=== PATIENT | male | born 1955 | race Caucasian/White ===

== ENCOUNTER 2018-07-25 00:57 | Outpatient (CLI) | payer MEDICAID, SELFPAY ==
[2018-07-25] MEDS: Omnipaque 350 MG/ML 100 ML BTL IV (11:15)
--- NOTE | 2018-07-25 11:24 | DI.CT_ITS ---
SYMPTOMS/DIAGNOSIS: RESTAGING, S/P CHEMO/RT FOR MEDIASTINAL MASS, PRESUMED NSCLC CT CHEST, ABDOMEN AND PELVIS: Comparison is made with chest CT dated . Images were performed from the clavicles through the ischial tuberosities after IV and oral contrast. There has been interval development of multiple bilateral pulmonary nodules. The largest is in the anterior right lung at the border between the upper and middle lobes which measures 11 mm in greatest dimension. A 12 mm nodule is also seen in the right lower lobe. A 6 mm nodule is seen in the right upper lobe. Other smaller nodules are also present. A 7 mm nodule is seen in the upper left lung. Other smaller left sided nodules are also seen. No infiltrates, pleural or pericardial effusions are seen. There has been interval decrease in size of the previously noted mediastinal mass, now measuring 15 x 3.8 x 17 cm. It is mostly low homogeneous attenuation. No new adenopathy is seen. There are multiple low density lesions in the liver which appear stable. The gallbladder , spleen, adrenals, pancreas and kidneys are unremarkable. A diverticulum is seen in the descending duodenum. There is no bowel dilatation or inflammatory change. A large quantity of stool is seen in the rectum. Diverticula are present in the sigmoid colon. No adenopathy or free fluid is seen in the abdomen or pelvis. The prosthesis is normal in size. The bladder is unremarkable. No lytic or blastic bony lesions are seen. IMPRESSION: Interval development of multiple bilateral pulmonary nodules. Decreased size of mediastinal mass. Stable liver lesions.
== END 2018-07-25 01:17 ==
PROVIDERS: PCP Family Medicine; Visit Provider Radiology Radiation Oncology
DX: C34.02 Malignant neoplasm of left main bronchus (principal); R91.8 Other nonspecific abnormal finding of lung field; Z92.21 Personal history of antineoplastic chemotherapy
CPT/HCPCS: 36415; 74177; 71260; 82565; J3490

== ENCOUNTER 2018-08-05 09:52 | Outpatient (CLI) | payer MEDICAID, SELFPAY ==
[2018-08-05 10:20] LABS: Absolute Basophil Count 0.03 k/cumm (0.0-0.2); Absolute Eosinophil Count 0.18 k/cumm (0.0-0.7); Absolute Lymphocyte Count 0.74 k/cumm (1.2-3.4); Absolute Monocyte Count 0.42 k/cumm (0.11-0.7); Absolute Neutrophil Count 4.11 k/cumm (1.2-6.7); Basophils % 0.5; Eosinophils % 3.3; HCT 40.2 % (40.0-50.0); HGB 13.5 g/dL (13.5-17.5); Lymphocytes % 13.5; Mean Corp. HGB Concentration 33.6 g/dL (32.0-36.0); Mean Corpuscular Hemoglobin 29.6 pg (27.0-33.0); Mean Corpuscular Volume 88.2 fL (80-95); Mean Platelet Volume 9.1 fL (8.0-11.0); Monocytes % 7.7; Platelet Count 204 x1000/uL (130-400); RBC 4.56 m/cumm (4.50-6.00); RBC Distribution Width 12.3 % (11.8-14.1); White Blood Cell Count 5.48 k/cumm (4.4-10.8)
[2018-08-05 10:42] LABS: ALT 15 U/L (12-78); AST 14 U/L (15-37); Albumin 3.3 g/dL (3.4-5.0); Alkaline Phosphatase 91 U/L (46-116); Anion Gap 7.2 mmol/L (3-11); BUN 10 mg/dL (7-18); Bilirubin, Total 0.6 mg/dL (0.2-1.0); CO2 27.8 mmol/L (21.0-32.0); CREATININE 0.76 mg/dL (0.70-1.30); Calcium 8.3 mg/dL (8.5-10.1); Chloride 105 mmol/L (98-107); Glucose 95 mg/dL (70-100); Potassium 4.1 mmol/L (3.5-5.1); Sodium 140 mmol/L (136-145); T4 8.7 ug/dL (4.5-12.5); TSH 2.81 uIU/mL (0.358-3.74); Total Protein 6.3 g/dL (6.4-8.2)
== END 2018-08-05 10:12 ==
PROVIDERS: PCP Family Medicine; Visit Provider Internal Medicine Medical Oncology
DX: C34.02 Malignant neoplasm of left main bronchus (principal); E03.2 Hypothyroidism due to medicaments and other exogenous substances
CPT/HCPCS: 36415; 80053; 84436; 84443; 85025

== ENCOUNTER 2018-09-01 07:56 | Outpatient (CLI) | payer MEDICAID, SELFPAY ==
[2018-09-01 08:33] LABS: Abs Immature Grans 0.01 k/cumm (0.0-0.09); Absolute Basophil Count 0.03 k/cumm (0.0-0.2); Absolute Eosinophil Count 0.23 k/cumm (0.0-0.7); Absolute Lymphocyte Count 0.61 k/cumm (1.2-3.4); Absolute Monocyte Count 0.34 k/cumm (0.11-0.7); Absolute Neutrophil Count 3.12 k/cumm (1.2-6.7); Basophils % 0.7; Eosinophils % 5.3; HCT 43.3 % (40.0-50.0); Immature Grans % 0.2; Lymphocytes % 14.1; Mean Corp. HGB Concentration 32.3 g/dL (32.0-36.0); Mean Corpuscular Hemoglobin 28.6 pg (27.0-33.0); Mean Corpuscular Volume 88.4 fL (80-95); Monocytes % 7.8; Neutrophils % 71.9; Platelet Count 212 x1000/uL (130-400); RBC Distribution Width 12.8 % (11.8-14.1); White Blood Cell Count 4.34 k/cumm (4.4-10.8)
[2018-09-01 09:05] LABS: ALT 16 U/L (12-78); AST 17 U/L (15-37); Albumin 3.1 g/dL (3.4-5.0); Alkaline Phosphatase 100 U/L (46-116); Anion Gap 6.8 mmol/L (3-11); BUN 11 mg/dL (7-18); Bilirubin, Total 0.8 mg/dL (0.2-1.0); CO2 29.2 mmol/L (21.0-32.0); CREATININE 0.86 mg/dL (0.70-1.30); Calcium 8.6 mg/dL (8.5-10.1); Chloride 106 mmol/L (98-107); Glucose 84 mg/dL (70-100); Potassium 4.1 mmol/L (3.5-5.1); Sodium 142 mmol/L (136-145); T4 8.5 ug/dL (4.5-12.5); TSH 2.59 uIU/mL (0.358-3.74); Total Protein 6.3 g/dL (6.4-8.2)
== END 2018-09-01 08:16 ==
PROVIDERS: PCP Family Medicine; Visit Provider Internal Medicine Medical Oncology
DX: C34.02 Malignant neoplasm of left main bronchus (principal); E03.2 Hypothyroidism due to medicaments and other exogenous substances
CPT/HCPCS: 36415; 80053; 84436; 84443; 85025

== ENCOUNTER 2018-09-26 02:27 | Outpatient (CLI) | payer MEDICAID, SELFPAY ==
[2018-09-26 16:46] LABS: Abs Immature Grans 0.01 k/cumm (0.0-0.09); Absolute Basophil Count 0.05 k/cumm (0.0-0.2); Absolute Eosinophil Count 0.13 k/cumm (0.0-0.7); Absolute Neutrophil Count 5.41 k/cumm (1.2-6.7); Basophils % 0.7; Eosinophils % 1.9; HCT 40.3 % (40.0-50.0); HGB 13.2 g/dL (13.5-17.5); Immature Grans % 0.1; Lymphocytes % 12.9; Mean Corp. HGB Concentration 32.8 g/dL (32.0-36.0); Mean Corpuscular Hemoglobin 28.4 pg (27.0-33.0); Mean Corpuscular Volume 86.7 fL (80-95); Mean Platelet Volume 9.2 fL (8.0-11.0); Monocytes % 7.1; Neutrophils % 77.3; Platelet Count 230 x1000/uL (130-400); RBC 4.65 m/cumm (4.50-6.00); RBC Distribution Width 12.8 % (11.8-14.1)
[2018-09-26 17:20] LABS: ALT 17 U/L (12-78); AST 14 U/L (15-37); Albumin 3.2 g/dL (3.4-5.0); Alkaline Phosphatase 93 U/L (46-116); Anion Gap 10.1 mmol/L (3-11); BUN 9 mg/dL (7-18); Bilirubin, Total 0.7 mg/dL (0.2-1.0); CO2 27.9 mmol/L (21.0-32.0); CREATININE 1.04 mg/dL (0.70-1.30); Calcium 8.5 mg/dL (8.5-10.1); Chloride 101 mmol/L (98-107); Glucose 94 mg/dL (70-100); Potassium 3.6 mmol/L (3.5-5.1); Sodium 139 mmol/L (136-145); TSH 2.84 uIU/mL (0.358-3.74); Total Protein 6.3 g/dL (6.4-8.2)
[2018-09-26 17:29] LABS: T4 8.3 ug/dL (4.5-12.5)
== END 2018-09-26 02:47 ==
PROVIDERS: PCP Family Medicine; Visit Provider Nurse Practitioner Adult Health
DX: C34.02 Malignant neoplasm of left main bronchus (principal); E03.2 Hypothyroidism due to medicaments and other exogenous substances
CPT/HCPCS: 36415; 80053; 84436; 84443; 85025

== ENCOUNTER 2018-09-29 11:03 | Outpatient (CLI) | payer MEDICAID, SELFPAY | END 2018-09-29 11:23 | PROVIDERS: PCP Family Medicine; Visit Provider Nurse Practitioner Adult Health | DX: R00.8 Other abnormalities of heart beat (principal); C34.90 Malignant neoplasm of unspecified part of unspecified bronchus or lung; C34.02 Malignant neoplasm of left main bronchus | CPT/HCPCS: 93005; 93010 ==

== ENCOUNTER 2018-10-30 08:37 | Outpatient (CLI) | payer MEDICAID, SELFPAY ==
[2018-10-30 09:14] LABS: Abs Immature Grans 0.01 k/cumm (0.0-0.09); Absolute Basophil Count 0.03 k/cumm (0.0-0.2); Absolute Eosinophil Count 0.18 k/cumm (0.0-0.7); Absolute Lymphocyte Count 0.78 k/cumm (1.2-3.4); Absolute Monocyte Count 0.36 k/cumm (0.11-0.7); Absolute Neutrophil Count 3.81 k/cumm (1.2-6.7); Basophils % 0.6; Eosinophils % 3.5; HCT 41.6 % (40.0-50.0); HGB 13.6 g/dL (13.5-17.5); Immature Grans % 0.2; Lymphocytes % 15.1; Mean Corp. HGB Concentration 32.7 g/dL (32.0-36.0); Mean Corpuscular Hemoglobin 28.9 pg (27.0-33.0); Mean Corpuscular Volume 88.3 fL (80-95); Mean Platelet Volume 8.9 fL (8.0-11.0); Neutrophils % 73.6; Platelet Count 207 x1000/uL (130-400); RBC 4.71 m/cumm (4.50-6.00); RBC Distribution Width 12.7 % (11.8-14.1); White Blood Cell Count 5.17 k/cumm (4.4-10.8)
[2018-10-30 09:37] LABS: ALT 16 U/L (12-78); AST 11 U/L (15-37); Albumin 3.3 g/dL (3.4-5.0); Alkaline Phosphatase 98 U/L (46-116); Anion Gap 7.2 mmol/L (3-11); BUN 11 mg/dL (7-18); Bilirubin, Total 0.7 mg/dL (0.2-1.0); CO2 30.8 mmol/L (21.0-32.0); CREATININE 0.73 mg/dL (0.70-1.30); Calcium 8.8 mg/dL (8.5-10.1); Chloride 104 mmol/L (98-107); FREE T4 0.99 ng/dL (0.76-1.46); Glucose 65 mg/dL (70-100); Potassium 4.2 mmol/L (3.5-5.1); Sodium 142 mmol/L (136-145); Total Protein 6.5 g/dL (6.4-8.2)
[2018-10-30 10:01] LABS: TSH 2.03 uIU/mL (0.358-3.74)
== END 2018-10-30 08:57 ==
PROVIDERS: PCP Family Medicine; Visit Provider Nurse Practitioner Adult Health
DX: C34.90 Malignant neoplasm of unspecified part of unspecified bronchus or lung (principal); C34.02 Malignant neoplasm of left main bronchus
CPT/HCPCS: 36415; 80053; 84439; 84443; 85025

== ENCOUNTER 2018-11-24 00:17 | Outpatient (CLI) | payer MEDICAID, SELFPAY ==
[2018-11-24] MEDS: Omnipaque 350 MG/ML 50 ML BTL PO (10:03)
[2018-11-24] MEDS: Breeza Beverage 473 ML BTL PO ×2 (10:05→11:16)
[2018-11-24 10:22] LABS: CREATININE 0.92 mg/dL (0.70-1.30)
--- NOTE | 2018-11-24 10:54 | DI.CT_ITS ---
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 Comparison examination is 07/25/18. ABDOMEN AND PELVIS: There are multiple hypodense lesions seen within the liver. They are all stable compared to the prior examination. No enhancing hepatic masses are seen. The portal and superior mesenteric veins are patent. The gallbladder is negative. No biliary ductal dilatation is seen. The pancreas and peripancreatic soft tissues are unremarkable as are the spleen and adrenal glands. The kidneys show normal and symmetric enhancement. No evidence of a solid renal mass or obstruction is identified. The urinary bladder is intact. The reproductive organs are unremarkable. There is a large amount of stool seen in the rectum. No evidence of bowel obstruction or inflammation is seen. There is a normal appendix in the right lower quadrant of the abdomen. The abdominal aorta is of normal caliber. No aneurysmal dilatation is seen. There is mild atherosclerosis present. No significant abdominal or pelvic adenopathy, ascites or pneumoperitoneum is present. The bones are intact. No aggressive osseous lesions are seen. IMPRESSION: Stable hypodense lesions seen in the liver. Otherwise negative abdomen and pelvic CT scan. CHEST: The thoracic aorta is of normal caliber. No aneurysmal dilatation is seen. Heart size is at the upper limits of normal in size. No significant pericardial effusion is seen. The mass in the anterior mediastinum appears to have shown interval increase in size measuring 4.3 cm. by 3.0 cm. There does appear to be some involvement of the left subclavian and left common carotid arteries. No other significant mediastinal adenopathy or mass is seen. No pleural effusion or pneumothorax is identified. There are multiple pulmonary nodules including new nodules since 07/25/18. The largest nodule is in the left upper lobe and measures 1.2 by 1.2 cm. Mild centrilobular emphysematous changes are seen in the lungs. Paraseptal emphysematous changes are present in the lungs. No focal infiltrates are seen. The tracheobronchial tree is unremarkable. Degenerative changes are seen in the spine. No aggressive osseous lesions are identified. IMPRESSION: Worsening metastatic disease in the chest with an interval increase in size of the mediastinal mass since 07/25/18. There have also developed new pulmonary nodules, the largest of which lies in the left upper lobe and measures 1.2 cm. in diameter.
[2018-11-24] MEDS: Omnipaque 350 MG/ML 100 ML BTL IV (11:21)
== END 2018-11-24 00:37 ==
PROVIDERS: PCP Family Medicine; Visit Provider Nurse Practitioner Adult Health
DX: C34.02 Malignant neoplasm of left main bronchus (principal); C34.90 Malignant neoplasm of unspecified part of unspecified bronchus or lung; C78.1 Secondary malignant neoplasm of mediastinum; R91.8 Other nonspecific abnormal finding of lung field; K76.9 Liver disease, unspecified; Z92.21 Personal history of antineoplastic chemotherapy
CPT/HCPCS: 36415; 74177; 71260; 82565; J3490; Q9967

== ENCOUNTER 2018-11-27 11:11 | Outpatient (CLI) | payer MEDICAID, SELFPAY ==
[2018-11-27 11:41] LABS: Abs Immature Grans 0.01 k/cumm (0.0-0.09); Absolute Basophil Count 0.03 k/cumm (0.0-0.2); Absolute Eosinophil Count 0.18 k/cumm (0.0-0.7); Absolute Lymphocyte Count 0.96 k/cumm (1.2-3.4); Absolute Monocyte Count 0.44 k/cumm (0.11-0.7); Absolute Neutrophil Count 6.08 k/cumm (1.2-6.7); Basophils % 0.4; Eosinophils % 2.3; HCT 41.4 % (40.0-50.0); HGB 13.6 g/dL (13.5-17.5); Immature Grans % 0.1; Lymphocytes % 12.5; Mean Corp. HGB Concentration 32.9 g/dL (32.0-36.0); Mean Corpuscular Hemoglobin 28.6 pg (27.0-33.0); Mean Corpuscular Volume 87.2 fL (80-95); Monocytes % 5.7; Platelet Count 216 x1000/uL (130-400); RBC 4.75 m/cumm (4.50-6.00); RBC Distribution Width 12.5 % (11.8-14.1)
[2018-11-27 12:07] LABS: ALT 13 U/L (12-78); AST 12 U/L (15-37); Albumin 3.4 g/dL (3.4-5.0); Alkaline Phosphatase 111 U/L (46-116); Anion Gap 8.4 mmol/L (3-11); BUN 13 mg/dL (7-18); Bilirubin, Total 0.8 mg/dL (0.2-1.0); CO2 30.6 mmol/L (21.0-32.0); CREATININE 0.86 mg/dL (0.70-1.30); Calcium 9.2 mg/dL (8.5-10.1); Chloride 103 mmol/L (98-107); FREE T4 1.12 ng/dL (0.76-1.46); Glucose 72 mg/dL (70-100); Potassium 3.8 mmol/L (3.5-5.1); Sodium 142 mmol/L (136-145); TSH 3.87 uIU/mL (0.358-3.74); Total Protein 6.6 g/dL (6.4-8.2)
== END 2018-11-27 11:31 ==
PROVIDERS: PCP Family Medicine; Visit Provider Nurse Practitioner Adult Health
DX: C34.90 Malignant neoplasm of unspecified part of unspecified bronchus or lung (principal); C34.02 Malignant neoplasm of left main bronchus
CPT/HCPCS: 36415; 80053; 84439; 84443; 85025

== ENCOUNTER 2018-12-18 01:31 | Outpatient (RCR) | payer MEDICAID, SELFPAY ==
[2018-12-11] MEDS: Normal Saline Flush 10 ML SYR IVP (10:49)
[2018-12-11 11:00] LABS: Abs Immature Grans 0.01 k/cumm (0.0-0.09); Absolute Basophil Count 0.02 k/cumm (0.0-0.2); Absolute Lymphocyte Count 0.73 k/cumm (1.2-3.4); Absolute Monocyte Count 0.24 k/cumm (0.11-0.7); Absolute Neutrophil Count 2.74 k/cumm (1.2-6.7); Basophils % 0.5; Eosinophils % 2.6; HCT 38.9 % (40.0-50.0); HGB 12.8 g/dL (13.5-17.5); Immature Grans % 0.3; Mean Corp. HGB Concentration 32.9 g/dL (32.0-36.0); Mean Corpuscular Hemoglobin 28.8 pg (27.0-33.0); Mean Corpuscular Volume 87.6 fL (80-95); Mean Platelet Volume 9.2 fL (8.0-11.0); Monocytes % 6.3; Neutrophils % 71.3; Platelet Count 137 x1000/uL (130-400); RBC 4.44 m/cumm (4.50-6.00); White Blood Cell Count 3.84 k/cumm (4.4-10.8)
[2018-12-11 11:22] LABS: ALT 21 U/L (12-78); AST 18 U/L (15-37); Alkaline Phosphatase 108 U/L (46-116); Anion Gap 6.8 mmol/L (3-11); BUN 17 mg/dL (7-18); Bilirubin, Total 0.5 mg/dL (0.2-1.0); CO2 30.2 mmol/L (21.0-32.0); CREATININE 0.73 mg/dL (0.70-1.30); Calcium 8.6 mg/dL (8.5-10.1); Chloride 102 mmol/L (98-107); Glucose 98 mg/dL (70-100); Potassium 3.9 mmol/L (3.5-5.1); Sodium 139 mmol/L (136-145); T4 9.4 ug/dL (4.5-12.5); Total Protein 6.4 g/dL (6.4-8.2)
== END 2018-12-18 23:59 | disposition home or self-care (01) ==
LOC: INF 01:31
PROVIDERS: PCP Family Medicine; Visit Provider Internal Medicine Hematology & Oncology
DX: C34.90 Malignant neoplasm of unspecified part of unspecified bronchus or lung (principal); E03.2 Hypothyroidism due to medicaments and other exogenous substances; Z45.2 Encounter for adjustment and management of vascular access device
CPT/HCPCS: 36591; 80053; 84436; 84443; 85025

== ENCOUNTER 2019-01-15 01:08 | Outpatient (RCR) | payer MEDICAID, SELFPAY ==
[2018-12-25] MEDS: Normal Saline Flush 10 ML SYR IVP (10:07)
[2018-12-25 10:17] LABS: Absolute Basophil Count 0.02 k/cumm (0.0-0.2); Absolute Eosinophil Count 0.04 k/cumm (0.0-0.7); Absolute Lymphocyte Count 0.64 k/cumm (1.2-3.4); Absolute Monocyte Count 0.35 k/cumm (0.11-0.7); Absolute Neutrophil Count 1.37 k/cumm (1.2-6.7); Basophils % 0.8; Eosinophils % 1.7; HCT 34.9 % (40.0-50.0); HGB 11.4 g/dL (13.5-17.5); Lymphocytes % 26.4; Mean Corp. HGB Concentration 32.7 g/dL (32.0-36.0); Mean Corpuscular Hemoglobin 28.6 pg (27.0-33.0); Mean Corpuscular Volume 87.5 fL (80-95); Monocytes % 14.5; Neutrophils % 56.6; Platelet Count 170 x1000/uL (130-400); RBC 3.99 m/cumm (4.50-6.00); RBC Distribution Width 12.4 % (11.8-14.1); White Blood Cell Count 2.42 k/cumm (4.4-10.8)
[2018-12-25 11:33] LABS: ALT 25 U/L (12-78); AST 16 U/L (15-37); Alkaline Phosphatase 103 U/L (46-116); Anion Gap 7.5 mmol/L (3-11); BUN 9 mg/dL (7-18); Bilirubin, Total 0.3 mg/dL (0.2-1.0); CO2 29.5 mmol/L (21.0-32.0); CREATININE 0.75 mg/dL (0.70-1.30); Calcium 8.7 mg/dL (8.5-10.1); Chloride 104 mmol/L (98-107); Glucose 93 mg/dL (70-100); Sodium 141 mmol/L (136-145); T4 9.8 ug/dL (4.5-12.5); TSH 2.75 uIU/mL (0.358-3.74); Total Protein 6.5 g/dL (6.4-8.2)
[2019-01-01 09:00] LABS: Abs Immature Grans 0.02 k/cumm (0.0-0.09); Absolute Basophil Count 0.02 k/cumm (0.0-0.2); Absolute Eosinophil Count 0.03 k/cumm (0.0-0.7); Absolute Lymphocyte Count 0.52 k/cumm (1.2-3.4); Absolute Monocyte Count 0.21 k/cumm (0.11-0.7); Absolute Neutrophil Count 0.67 k/cumm (1.2-6.7); Basophils % 1.4; HGB 11.2 g/dL (13.5-17.5); Immature Grans % 1.4; Lymphocytes % 35.4; Mean Corp. HGB Concentration 32.9 g/dL (32.0-36.0); Mean Corpuscular Hemoglobin 28.6 pg (27.0-33.0); Mean Platelet Volume 8.5 fL (8.0-11.0); Monocytes % 14.3; Neutrophils % 45.5; Platelet Count 206 x1000/uL (130-400); RBC 3.91 m/cumm (4.50-6.00); RBC Distribution Width 12.6 % (11.8-14.1)
[2019-01-01] MEDS: Normal Saline Flush 10 ML SYR IVP (09:14)
[2019-01-01 09:15] LABS: White Blood Cell Count 1.47 k/cumm (4.4-10.8)
[2019-01-01 09:18] LABS: Diff Comment Diff Reviewed; RBC Morphology Normal
[2019-01-01 09:33] LABS: ALT 38 U/L (12-78); AST 20 U/L (15-37); Albumin 3.1 g/dL (3.4-5.0); Alkaline Phosphatase 109 U/L (46-116); Anion Gap 7.1 mmol/L (3-11); BUN 19 mg/dL (7-18); Bilirubin, Total 0.5 mg/dL (0.2-1.0); CO2 28.9 mmol/L (21.0-32.0); CREATININE 0.79 mg/dL (0.70-1.30); Calcium 8.7 mg/dL (8.5-10.1); Chloride 104 mmol/L (98-107); Glucose 102 mg/dL (70-100); Potassium 3.9 mmol/L (3.5-5.1); Sodium 140 mmol/L (136-145); TSH 2.92 uIU/mL (0.358-3.74); Total Protein 6.6 g/dL (6.4-8.2)
[2019-01-01 09:50] LABS: T4 9.3 ug/dL (4.5-12.5)
[2019-01-15] MEDS: Normal Saline Flush 10 ML SYR IVP (10:48)
[2019-01-15 10:55] LABS: Abs Immature Grans 0.04 k/cumm (0.0-0.09); Absolute Basophil Count 0.03 k/cumm (0.0-0.2); Absolute Eosinophil Count 0.05 k/cumm (0.0-0.7); Absolute Lymphocyte Count 0.79 k/cumm (1.2-3.4); Absolute Monocyte Count 1.04 k/cumm (0.11-0.7); Absolute Neutrophil Count 8.83 k/cumm (1.2-6.7); Basophils % 0.3; Eosinophils % 0.5; HCT 31.3 % (40.0-50.0); HGB 10.2 g/dL (13.5-17.5); Immature Grans % 0.4; Lymphocytes % 7.3; Mean Corp. HGB Concentration 32.6 g/dL (32.0-36.0); Mean Corpuscular Hemoglobin 28.8 pg (27.0-33.0); Mean Corpuscular Volume 88.4 fL (80-95); Mean Platelet Volume 9.6 fL (8.0-11.0); Monocytes % 9.6; Neutrophils % 81.9; Platelet Count 161 x1000/uL (130-400); RBC 3.54 m/cumm (4.50-6.00); RBC Distribution Width 14.4 % (11.8-14.1); White Blood Cell Count 10.78 k/cumm (4.4-10.8)
[2019-01-15 11:20] LABS: ALT 15 U/L (12-78); AST 11 U/L (15-37); Albumin 2.8 g/dL (3.4-5.0); Alkaline Phosphatase 133 U/L (46-116); Anion Gap 4.4 mmol/L (3-11); BUN 8 mg/dL (7-18); Bilirubin, Total 0.3 mg/dL (0.2-1.0); CO2 30.6 mmol/L (21.0-32.0); CREATININE 0.61 mg/dL (0.70-1.30); Calcium 8.9 mg/dL (8.5-10.1); Chloride 102 mmol/L (98-107); Glucose 100 mg/dL (70-100); Potassium 3.8 mmol/L (3.5-5.1); Sodium 137 mmol/L (136-145); T4 8.7 ug/dL (4.5-12.5); TSH 1.99 uIU/mL (0.358-3.74); Total Protein 6.7 g/dL (6.4-8.2)
== END 2019-01-15 23:59 | disposition home or self-care (01) ==
LOC: INF 01:08
PROVIDERS: PCP Family Medicine; Visit Provider Internal Medicine Hematology & Oncology
DX: C34.90 Malignant neoplasm of unspecified part of unspecified bronchus or lung (principal); E03.2 Hypothyroidism due to medicaments and other exogenous substances; Z45.2 Encounter for adjustment and management of vascular access device
CPT/HCPCS: 36591; 80053; 84436; 84443; 85025

== ENCOUNTER 2019-02-02 00:29 | Outpatient (CLI) | payer MEDICAID, SELFPAY ==
[2019-02-02] MEDS: Breeza Beverage 473 ML BTL PO ×2 (09:44→09:49)
[2019-02-02] MEDS: Omnipaque 350 MG/ML 50 ML BTL PO (09:45)
--- NOTE | 2019-02-02 11:25 | DI.CT_ITS ---
SYMPTOM/DIAGNOSIS: SQUAMOUS CELL LUNG CA, RESTAGING EXAM, S/P CHEMO, C34.90 CHEST, ABDOMEN AND PELVIC CT: CT scan of the chest, abdomen and pelvis was performed following the uneventful administration of intravenous and oral contrast material. Comparison is made with 11/24/18. ABDOMEN AND PELVIS: The liver is normal in size. There are multiple hypodense, round lesions seen in the liver. They are stable. No suspicious enhancing lesions are seen. The portal, superior mesenteric and splenic veins are patent. The gallbladder is negative. No biliary ductal dilatation is seen. The pancreas, spleen and adrenal glands are unremarkable. Incidental note is made of a large duodenal diverticulum adjacent to the pancreatic head. The kidneys show normal and symmetric enhancement. No suspicious solid renal mass or obstruction is identified. The urinary bladder is intact. The reproductive organs are unremarkable. There is atherosclerosis of the abdominal aorta but no aneurysmal dilatation is seen. No significant abdominal or pelvic adenopathy, ascites or pneumoperitoneum is present. There is a large amount of stool seen in the rectal vault. Fecal impaction cannot be excluded. No bowel wall thickening is seen. There is diverticulosis of the colon but no evidence of acute diverticulitis. There is a normal appendix present. The remainder of the bowel is unremarkable. No aggressive osseous lesions are present. IMPRESSION: No change in appearance of the abdomen and pelvis. Stable hepatic lesions probably reflecting cysts. CHEST: The mass in the anterior mediastinum now measures 3.7 AP by 2.7 cm. transverse compared with 4.3 by 3.0 cm. There is unchanged involvement of the adjacent subclavian and common carotid arteries. There has been a decrease in size of the left upper pole pulmonary nodule. It measures .7 cm. on the current examination compared with 1.2 on the prior examination (series 8, image 174 on the examination of 02/02/19). No new pulmonary nodules are identified. No new infiltrates are seen. No pneumothorax or pleural effusion is present. There is now a lytic lesion seen in the T 9 vertebral body. IMPRESSION: Interval decrease in size of the mediastinal mass and the largest left upper lobe pulmonary nodule since 11/24/18. Interval development of a 0.6 cm., round, lytic lesion in the T 9 vertebral body. Metastatic deposit cannot be excluded.
[2019-02-02] MEDS: Omnipaque 350 MG/ML 100 ML BTL IV (11:33)
== END 2019-02-02 00:49 ==
PROVIDERS: PCP Family Medicine; Visit Provider Internal Medicine Hematology & Oncology
DX: C34.90 Malignant neoplasm of unspecified part of unspecified bronchus or lung (principal); Z92.21 Personal history of antineoplastic chemotherapy; R91.8 Other nonspecific abnormal finding of lung field
CPT/HCPCS: 74177; 71260; J3490; Q9967

== ENCOUNTER 2019-02-12 00:41 | Outpatient (RCR) | payer MEDICAID, SELFPAY ==
[2019-01-22] MEDS: Normal Saline Flush 10 ML SYR IVP (10:16)
[2019-01-22 10:30] LABS: Abs Immature Grans 0.02 k/cumm (0.0-0.09); Absolute Basophil Count 0.04 k/cumm (0.0-0.2); Absolute Eosinophil Count 0.07 k/cumm (0.0-0.7); Absolute Lymphocyte Count 0.77 k/cumm (1.2-3.4); Absolute Monocyte Count 0.38 k/cumm (0.11-0.7); Absolute Neutrophil Count 3.92 k/cumm (1.2-6.7); Basophils % 0.8; Eosinophils % 1.3; HCT 30.3 % (40.0-50.0); HGB 9.9 g/dL (13.5-17.5); Immature Grans % 0.4; Lymphocytes % 14.8; Mean Corp. HGB Concentration 32.7 g/dL (32.0-36.0); Mean Corpuscular Hemoglobin 29.2 pg (27.0-33.0); Mean Corpuscular Volume 89.4 fL (80-95); Mean Platelet Volume 9.1 fL (8.0-11.0); Monocytes % 7.3; Neutrophils % 75.4; Platelet Count 260 x1000/uL (130-400); RBC 3.39 m/cumm (4.50-6.00); RBC Distribution Width 14.1 % (11.8-14.1)
[2019-01-22 10:52] LABS: ALT 18 U/L (12-78); AST 15 U/L (15-37); Albumin 2.9 g/dL (3.4-5.0); Alkaline Phosphatase 128 U/L (46-116); Anion Gap 5.9 mmol/L (3-11); BUN 13 mg/dL (7-18); Bilirubin, Total 0.2 mg/dL (0.2-1.0); CO2 29.1 mmol/L (21.0-32.0); CREATININE 0.68 mg/dL (0.70-1.30); Calcium 8.8 mg/dL (8.5-10.1); Chloride 104 mmol/L (98-107); Glucose 101 mg/dL (70-100); Potassium 3.7 mmol/L (3.5-5.1); Sodium 139 mmol/L (136-145); T4 9.1 ug/dL (4.5-12.5); Total Protein 6.6 g/dL (6.4-8.2)
[2019-02-02] MEDS: Normal Saline Flush 10 ML SYR IVP (09:34)
[2019-02-02] MEDS: Heparin 500 UNITS/5 ML SYRINGE IV (09:35)
[2019-02-02 09:44] LABS: HCT 31.2 % (40.0-50.0); HGB 9.7 g/dL (13.5-17.5); Mean Corp. HGB Concentration 31.1 g/dL (32.0-36.0); Mean Corpuscular Hemoglobin 29.2 pg (27.0-33.0); Mean Platelet Volume 10.2 fL (8.0-11.0); RBC 3.32 m/cumm (4.50-6.00); RBC Distribution Width 17.7 % (11.8-14.1)
[2019-02-02 10:01] LABS: White Blood Cell Count 25.21 k/cumm (4.4-10.8)
[2019-02-02 10:03] LABS: Absolute Lymphocyte Count 1.01 k/cumm (1.2-3.4); Absolute Monocyte Count 1.51 k/cumm (0.11-0.7); Absolute Neutrophil Count 22.44 k/cumm (1.2-6.7); Atypical Lymphocytes % 1
[2019-02-02 10:04] LABS: Anisocytosis 2+; Diff Comment Manual Differential
[2019-02-02 10:05] LABS: Basophilic Stippling Present; Hypochromasia 1+; Macrocytosis 1+; Microcytosis 1+; Poikilocytes 1+; Polychromasia Present
[2019-02-02 10:06] LABS: Platelet Count 92 x1000/uL (130-400)
[2019-02-02 10:08] LABS: ALT 17 U/L (12-78); AST 14 U/L (15-37); Albumin 3.1 g/dL (3.4-5.0); Alkaline Phosphatase 228 U/L (46-116); Anion Gap 8.9 mmol/L (3-11); BUN 11 mg/dL (7-18); Bilirubin, Total 0.3 mg/dL (0.2-1.0); CO2 28.1 mmol/L (21.0-32.0); CREATININE 0.64 mg/dL (0.70-1.30); Calcium 8.6 mg/dL (8.5-10.1); Chloride 104 mmol/L (98-107); Glucose 89 mg/dL (70-100); Sodium 141 mmol/L (136-145); TSH 2.87 uIU/mL (0.358-3.74); Total Protein 6.7 g/dL (6.4-8.2)
[2019-02-05] MEDS: Normal Saline Flush 10 ML SYR IVP (10:00)
[2019-02-05 10:23] LABS: Abs Immature Grans 0.12 k/cumm (0.0-0.09); Absolute Basophil Count 0.03 k/cumm (0.0-0.2); Absolute Eosinophil Count 0.03 k/cumm (0.0-0.7); Absolute Lymphocyte Count 0.83 k/cumm (1.2-3.4); Absolute Monocyte Count 1.24 k/cumm (0.11-0.7); Basophils % 0.2; Eosinophils % 0.2; HGB 10.2 g/dL (13.5-17.5); Immature Grans % 0.7; Lymphocytes % 4.8; Mean Corp. HGB Concentration 31.9 g/dL (32.0-36.0); Mean Corpuscular Hemoglobin 29.6 pg (27.0-33.0); Mean Corpuscular Volume 92.8 fL (80-95); Mean Platelet Volume 9.4 fL (8.0-11.0); Monocytes % 7.2; Neutrophils % 86.9; Platelet Count 187 x1000/uL (130-400); RBC 3.45 m/cumm (4.50-6.00); RBC Distribution Width 18.2 % (11.8-14.1); White Blood Cell Count 17.26 k/cumm (4.4-10.8)
[2019-02-05 10:55] LABS: ALT 19 U/L (12-78); AST 13 U/L (15-37); Albumin 3.3 g/dL (3.4-5.0); Alkaline Phosphatase 201 U/L (46-116); BUN 7 mg/dL (7-18); Bilirubin, Total 0.4 mg/dL (0.2-1.0); CREATININE 0.64 mg/dL (0.70-1.30); Chloride 102 mmol/L (98-107); Glucose 105 mg/dL (70-100); Sodium 137 mmol/L (136-145); TSH 3.49 uIU/mL (0.358-3.74); Total Protein 6.9 g/dL (6.4-8.2)
[2019-02-05 11:07] LABS: T4 9.1 ug/dL (4.5-12.5)
[2019-02-12] MEDS: Normal Saline Flush 10 ML SYR IVP (11:30)
[2019-02-12 11:49] LABS: Abs Immature Grans 0.02 k/cumm (0.0-0.09); Absolute Basophil Count 0.04 k/cumm (0.0-0.2); Absolute Eosinophil Count 0.05 k/cumm (0.0-0.7); Absolute Lymphocyte Count 0.72 k/cumm (1.2-3.4); Absolute Neutrophil Count 5.08 k/cumm (1.2-6.7); Basophils % 0.6; Eosinophils % 0.8; HCT 29.2 % (40.0-50.0); HGB 9.3 g/dL (13.5-17.5); Immature Grans % 0.3; Lymphocytes % 11.2; Mean Corp. HGB Concentration 31.8 g/dL (32.0-36.0); Mean Corpuscular Hemoglobin 29.6 pg (27.0-33.0); Mean Platelet Volume 8.9 fL (8.0-11.0); Monocytes % 7.8; Neutrophils % 79.3; Platelet Count 167 x1000/uL (130-400); RBC 3.14 m/cumm (4.50-6.00); RBC Distribution Width 16.6 % (11.8-14.1); White Blood Cell Count 6.41 k/cumm (4.4-10.8)
[2019-02-12 12:11] LABS: ALT 30 U/L (12-78); AST 18 U/L (15-37); Albumin 3.1 g/dL (3.4-5.0); Alkaline Phosphatase 148 U/L (46-116); Anion Gap 6.3 mmol/L (3-11); BUN 17 mg/dL (7-18); Bilirubin, Total 0.3 mg/dL (0.2-1.0); CO2 30.7 mmol/L (21.0-32.0); CREATININE 0.54 mg/dL (0.70-1.30); Calcium 8.5 mg/dL (8.5-10.1); Chloride 101 mmol/L (98-107); Glucose 120 mg/dL (70-100); Potassium 3.6 mmol/L (3.5-5.1); Sodium 138 mmol/L (136-145); T4 8.5 ug/dL (4.5-12.5); TSH 3.08 uIU/mL (0.358-3.74); Total Protein 6.8 g/dL (6.4-8.2)
== END 2019-02-15 23:59 | disposition home or self-care (01) ==
LOC: INF 00:41
PROVIDERS: PCP Family Medicine; Visit Provider Internal Medicine Hematology & Oncology
DX: C34.90 Malignant neoplasm of unspecified part of unspecified bronchus or lung (principal); E03.2 Hypothyroidism due to medicaments and other exogenous substances; Z45.2 Encounter for adjustment and management of vascular access device
CPT/HCPCS: 36591; 80053; 96523; 84436; 84443; 85025

== ENCOUNTER 2019-02-24 00:37 | Outpatient (CLI) | payer MEDICAID, SELFPAY ==
--- NOTE | 2019-02-24 10:00 | DI.NM_ITS ---
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 Comparison CT scan is 02/02/19. There is normal radiotracer activity in the kidneys and urinary bladder. No abnormal radiotracer uptake is seen in the axial or appendicular skeleton. Normal radiotracer uptake is seen throughout the thoracic spine. IMPRESSION: No scintigraphic evidence to suggest osseous metastatic disease.
== END 2019-02-24 00:57 ==
PROVIDERS: PCP Family Medicine; Visit Provider Internal Medicine Hematology & Oncology
DX: C34.02 Malignant neoplasm of left main bronchus (principal); M54.12 Radiculopathy, cervical region; M79.602 Pain in left arm; R74.8 Abnormal levels of other serum enzymes
CPT/HCPCS: 78306

== ENCOUNTER 2019-03-06 00:56 | Outpatient (RCR) | payer MEDICAID, SELFPAY ==
[2019-02-26] MEDS: Normal Saline Flush 10 ML SYR IVP (10:43)
[2019-02-26 10:53] LABS: Abs Immature Grans 0.05 k/cumm (0.0-0.09); Absolute Basophil Count 0.03 k/cumm (0.0-0.2); Absolute Eosinophil Count 0.07 k/cumm (0.0-0.7); Absolute Lymphocyte Count 0.72 k/cumm (1.2-3.4); Absolute Monocyte Count 1.46 k/cumm (0.11-0.7); Absolute Neutrophil Count 11.07 k/cumm (1.2-6.7); Basophils % 0.2; Eosinophils % 0.5; HCT 29.1 % (40.0-50.0); HGB 8.9 g/dL (13.5-17.5); Immature Grans % 0.4; Lymphocytes % 5.4; Mean Corp. HGB Concentration 30.6 g/dL (32.0-36.0); Mean Corpuscular Hemoglobin 29.5 pg (27.0-33.0); Mean Corpuscular Volume 96.4 fL (80-95); Mean Platelet Volume 10.2 fL (8.0-11.0); Monocytes % 10.9; Neutrophils % 82.6; Platelet Count 170 x1000/uL (130-400); RBC 3.02 m/cumm (4.50-6.00); RBC Distribution Width 17.9 % (11.8-14.1)
[2019-02-26 11:28] LABS: ALT 21 U/L (12-78); AST 12 U/L (15-37); Albumin 2.8 g/dL (3.4-5.0); Alkaline Phosphatase 160 U/L (46-116); BUN 13 mg/dL (7-18); Bilirubin, Total 0.4 mg/dL (0.2-1.0); CREATININE 0.58 mg/dL (0.70-1.30); Calcium 8.3 mg/dL (8.5-10.1); Chloride 102 mmol/L (98-107); Glucose 101 mg/dL (70-100); Potassium 3.9 mmol/L (3.5-5.1); Sodium 138 mmol/L (136-145); Total Protein 6.9 g/dL (6.4-8.2)
[2019-03-05] MEDS: Normal Saline Flush 10 ML SYR IVP ×2 (12:06→15:35)
[2019-03-05 12:18] LABS: Abs Immature Grans 0.03 k/cumm (0.0-0.09); Absolute Basophil Count 0.03 k/cumm (0.0-0.2); Absolute Eosinophil Count 0.05 k/cumm (0.0-0.7); Absolute Lymphocyte Count 0.62 k/cumm (1.2-3.4); Absolute Monocyte Count 0.58 k/cumm (0.11-0.7); Absolute Neutrophil Count 4.92 k/cumm (1.2-6.7); Basophils % 0.5; Eosinophils % 0.8; HCT 24.8 % (40.0-50.0); HGB 7.8 g/dL (13.5-17.5); Immature Grans % 0.5; Mean Corp. HGB Concentration 31.5 g/dL (32.0-36.0); Mean Corpuscular Hemoglobin 29.9 pg (27.0-33.0); Mean Platelet Volume 9.6 fL (8.0-11.0); Monocytes % 9.3; Neutrophils % 78.9; Platelet Count 166 x1000/uL (130-400); RBC 2.61 m/cumm (4.50-6.00); RBC Distribution Width 16.5 % (11.8-14.1); White Blood Cell Count 6.23 k/cumm (4.4-10.8)
[2019-03-05 12:33] LABS: ALT 30 U/L (12-78); AST 17 U/L (15-37); Albumin 2.8 g/dL (3.4-5.0); Alkaline Phosphatase 137 U/L (46-116); Anion Gap 7.2 mmol/L (3-11); BUN 15 mg/dL (7-18); Bilirubin, Total 0.2 mg/dL (0.2-1.0); CO2 29.8 mmol/L (21.0-32.0); CREATININE 0.58 mg/dL (0.70-1.30); Calcium 8.4 mg/dL (8.5-10.1); Chloride 101 mmol/L (98-107); Glucose 115 mg/dL (70-100); Potassium 3.6 mmol/L (3.5-5.1); Sodium 138 mmol/L (136-145); Total Protein 6.7 g/dL (6.4-8.2)
[2019-03-06] VITALS (7 sets, daily range): BP systolic 103–120; BP diastolic 60–72; PULSE 70–96; RESP 18–20; TEMP 36.4–36.6; O2SAT 97–98
[2019-03-06] MEDS: Normal Saline Flush 10 ML SYR IVP (11:09)
[2019-03-06] MEDS: Heparin 500 UNITS/5 ML SYRINGE IV (13:10)
== END 2019-03-17 23:59 | disposition home or self-care (01) ==
LOC: INF 00:56
PROVIDERS: PCP Family Medicine; Visit Provider Internal Medicine Hematology & Oncology
DX: C34.90 Malignant neoplasm of unspecified part of unspecified bronchus or lung (principal); D64.81 Anemia due to antineoplastic chemotherapy; Z45.2 Encounter for adjustment and management of vascular access device
CPT/HCPCS: 36430; 36591; 80053; 86850; 86900; 86901; 86920; 85025; P9016

== ENCOUNTER 2019-04-03 01:03 | Outpatient (CLI) | payer MEDICAID, SELFPAY ==
--- NOTE | 2019-04-03 13:55 | DI.CT_ITS ---
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 A post contrast exam was performed. The previously noted mass in the anterior mediastinum, to the left of the aorta, appears stable in size and appearance. The mass again surrounds the left subclavian and common carotid artery, but there is no vascular occlusion. There has been slight decrease in the amount of pericardial effusion. A 7 mm nodule in the left upper lobe appears unchanged. A 4 mm right upper lobe nodule is seen. There has been interval increase in size of a nodule in the right lower lobe measuring 1.2 cm in diameter compared with 9 mm on the previous exam. Again noted is bilateral upper lobe scarring and emphysematous changes. No focal infiltrates or pleural effusions are seen. There is a stable small rounded lytic lesion in the T9 vertebral body. There is now a mild compression fracture of the inferior endplate of T10, as well as the superior endplate of T4. Cysts are again demonstrated in the liver. IMPRESSION: Stable size of anterior mediastinal mass. Mild interval increase in size of a right lower lobe nodule. New thoracic compression fractures.
[2019-04-03] MEDS: Omnipaque 350 MG/ML 100 ML BTL IJ (14:29)
== END 2019-04-03 01:23 ==
PROVIDERS: PCP Family Medicine; Visit Provider Internal Medicine Hematology & Oncology
DX: C34.90 Malignant neoplasm of unspecified part of unspecified bronchus or lung (principal); Z92.21 Personal history of antineoplastic chemotherapy; R91.1 Solitary pulmonary nodule; M48.54XA Collapsed vertebra, not elsewhere classified, thoracic region, initial encounter for fracture
CPT/HCPCS: 71260; J3490

== ENCOUNTER 2019-04-16 01:56 | Outpatient (RCR) | payer MEDICAID, SELFPAY ==
[2019-03-19] MEDS: Normal Saline Flush 10 ML SYR IVP (10:25)
[2019-03-19 10:39] LABS: Abs Immature Grans 0.03 k/cumm (0.0-0.09); Absolute Basophil Count 0.02 k/cumm (0.0-0.2); Absolute Eosinophil Count 0.07 k/cumm (0.0-0.7); Absolute Lymphocyte Count 0.72 k/cumm (1.2-3.4); Absolute Monocyte Count 0.75 k/cumm (0.11-0.7); Basophils % 0.2; Eosinophils % 0.6; HCT 30.7 % (40.0-50.0); HGB 9.6 g/dL (13.5-17.5); Immature Grans % 0.3; Mean Corp. HGB Concentration 31.3 g/dL (32.0-36.0); Mean Corpuscular Hemoglobin 30.2 pg (27.0-33.0); Mean Corpuscular Volume 96.5 fL (80-95); Mean Platelet Volume 9.7 fL (8.0-11.0); Monocytes % 6.3; Neutrophils % 86.6; RBC 3.18 m/cumm (4.50-6.00); RBC Distribution Width 18.8 % (11.8-14.1); White Blood Cell Count 11.98 k/cumm (4.4-10.8)
[2019-03-19 10:49] LABS: Absolute Neutrophil Count 10.37 k/cumm (1.2-6.7); Platelet Count 89 x1000/uL (130-400)
[2019-03-19 10:51] LABS: Anisocytosis 2+; Hypochromasia 1+; Poikilocytes 2+
[2019-03-19 11:00] LABS: ALT 18 U/L (12-78); AST 13 U/L (15-37); Alkaline Phosphatase 167 U/L (46-116); Anion Gap 8.2 mmol/L (3-11); BUN 18 mg/dL (7-18); Bilirubin, Total 0.3 mg/dL (0.2-1.0); CO2 27.8 mmol/L (21.0-32.0); CREATININE 0.69 mg/dL (0.70-1.30); Chloride 101 mmol/L (98-107); Glucose 113 mg/dL (70-100); Potassium 4.1 mmol/L (3.5-5.1); Sodium 137 mmol/L (136-145); T4 9.2 ug/dL (4.5-12.5); TSH 2.92 uIU/mL (0.358-3.74); Total Protein 6.8 g/dL (6.4-8.2)
[2019-03-26] MEDS: Normal Saline Flush 10 ML SYR IVP (08:00)
[2019-03-26 08:33] LABS: Abs Immature Grans 0.02 k/cumm (0.0-0.09); Absolute Basophil Count 0.03 k/cumm (0.0-0.2); Absolute Eosinophil Count 0.05 k/cumm (0.0-0.7); Absolute Lymphocyte Count 0.49 k/cumm (1.2-3.4); Absolute Monocyte Count 0.28 k/cumm (0.11-0.7); Absolute Neutrophil Count 3.61 k/cumm (1.2-6.7); Basophils % 0.7; Eosinophils % 1.1; HCT 27.8 % (40.0-50.0); HGB 8.7 g/dL (13.5-17.5); Immature Grans % 0.4; Lymphocytes % 10.9; Mean Corp. HGB Concentration 31.3 g/dL (32.0-36.0); Mean Corpuscular Hemoglobin 30.3 pg (27.0-33.0); Mean Corpuscular Volume 96.9 fL (80-95); Mean Platelet Volume 9.7 fL (8.0-11.0); Monocytes % 6.3; Neutrophils % 80.6; RBC 2.87 m/cumm (4.50-6.00); RBC Distribution Width 17.1 % (11.8-14.1); White Blood Cell Count 4.48 k/cumm (4.4-10.8)
[2019-03-26 08:46] LABS: ALT 28 U/L (12-78); AST 18 U/L (15-37); Alkaline Phosphatase 140 U/L (46-116); Anion Gap 10.8 mmol/L (3-11); BUN 15 mg/dL (7-18); Bilirubin, Total 0.4 mg/dL (0.2-1.0); CO2 28.2 mmol/L (21.0-32.0); CREATININE 0.65 mg/dL (0.70-1.30); Calcium 8.4 mg/dL (8.5-10.1); Chloride 100 mmol/L (98-107); Glucose 88 mg/dL (70-100); Potassium 3.9 mmol/L (3.5-5.1); Sodium 139 mmol/L (136-145); T4 9.4 ug/dL (4.5-12.5); TSH 3.39 uIU/mL (0.358-3.74); Total Protein 6.5 g/dL (6.4-8.2)
[2019-03-26 08:47] LABS: Diff Comment RBC Morph Reviewed; Platelet Count 67 x1000/uL (130-400)
[2019-03-26 08:48] LABS: Anisocytosis 2+; Poikilocytes 1+
[2019-04-03] MEDS: Normal Saline Flush 10 ML SYR IVP (13:38)
[2019-04-03] MEDS: Heparin 500 UNITS/5 ML SYRINGE IV (13:39)
[2019-04-03 13:53] LABS: Abs Immature Grans 0.01 k/cumm (0.0-0.09); Absolute Basophil Count 0.02 k/cumm (0.0-0.2); Absolute Eosinophil Count 0.07 k/cumm (0.0-0.7); Absolute Lymphocyte Count 0.65 k/cumm (1.2-3.4); Basophils % 0.4; Eosinophils % 1.5; HCT 26.5 % (40.0-50.0); HGB 8.4 g/dL (13.5-17.5); Immature Grans % 0.2; Lymphocytes % 14.3; Mean Corp. HGB Concentration 31.7 g/dL (32.0-36.0); Mean Corpuscular Hemoglobin 31.5 pg (27.0-33.0); Mean Corpuscular Volume 99.3 fL (80-95); Mean Platelet Volume 10.2 fL (8.0-11.0); Neutrophils % 72.6; RBC 2.67 m/cumm (4.50-6.00); RBC Distribution Width 18.6 % (11.8-14.1); White Blood Cell Count 4.55 k/cumm (4.4-10.8)
[2019-04-03 14:06] LABS: ALT 21 U/L (12-78); AST 16 U/L (15-37); Albumin 3.1 g/dL (3.4-5.0); Alkaline Phosphatase 126 U/L (46-116); Anion Gap 8.3 mmol/L (3-11); BUN 15 mg/dL (7-18); Bilirubin, Total 0.3 mg/dL (0.2-1.0); CO2 27.7 mmol/L (21.0-32.0); CREATININE 0.76 mg/dL (0.70-1.30); Calcium 8.4 mg/dL (8.5-10.1); Chloride 102 mmol/L (98-107); Glucose 113 mg/dL (70-100); Potassium 3.9 mmol/L (3.5-5.1); Sodium 138 mmol/L (136-145); Total Protein 6.6 g/dL (6.4-8.2)
[2019-04-03 14:08] LABS: Anisocytosis 2+; Diff Comment RBC Morph Reviewed; Platelet Count 74 x1000/uL (130-400)
[2019-04-03 14:09] LABS: Poikilocytes 1+; Polychromasia Present
[2019-04-09 09:41] LABS: Abs Immature Grans 0.01 k/cumm (0.0-0.09); Absolute Basophil Count 0.02 k/cumm (0.0-0.2); Absolute Eosinophil Count 0.04 k/cumm (0.0-0.7); Absolute Monocyte Count 0.44 k/cumm (0.11-0.7); Absolute Neutrophil Count 2.89 k/cumm (1.2-6.7); Basophils % 0.5; HGB 9.5 g/dL (13.5-17.5); Immature Grans % 0.3; Mean Corp. HGB Concentration 30.6 g/dL (32.0-36.0); Mean Corpuscular Hemoglobin 30.4 pg (27.0-33.0); Mean Corpuscular Volume 99.4 fL (80-95); Mean Platelet Volume 9.5 fL (8.0-11.0); Neutrophils % 72.2; Platelet Count 142 x1000/uL (130-400); RBC 3.12 m/cumm (4.50-6.00)
[2019-04-09] MEDS: Normal Saline Flush 10 ML SYR IVP (09:43)
[2019-04-09 10:03] LABS: ALT 16 U/L (12-78); AST 14 U/L (15-37); Albumin 3.2 g/dL (3.4-5.0); Alkaline Phosphatase 136 U/L (46-116); Anion Gap 8.2 mmol/L (3-11); BUN 15 mg/dL (7-18); Bilirubin, Total 0.4 mg/dL (0.2-1.0); CO2 27.8 mmol/L (21.0-32.0); CREATININE 0.76 mg/dL (0.70-1.30); Calcium 8.4 mg/dL (8.5-10.1); Chloride 102 mmol/L (98-107); Glucose 103 mg/dL (70-100); Sodium 138 mmol/L (136-145); T4 8.3 ug/dL (4.5-12.5); TSH 3.96 uIU/mL (0.358-3.74); Total Protein 6.8 g/dL (6.4-8.2)
[2019-04-16] MEDS: Normal Saline Flush 10 ML SYR IVP (07:12)
[2019-04-16 07:29] LABS: Abs Immature Grans 0.01 k/cumm (0.0-0.09); Absolute Basophil Count 0.03 k/cumm (0.0-0.2); Absolute Eosinophil Count 0.06 k/cumm (0.0-0.7); Absolute Lymphocyte Count 0.54 k/cumm (1.2-3.4); Absolute Neutrophil Count 1.92 k/cumm (1.2-6.7); Basophils % 1.1; Eosinophils % 2.2; HCT 29.3 % (40.0-50.0); HGB 9.3 g/dL (13.5-17.5); Immature Grans % 0.4; Lymphocytes % 19.6; Mean Corp. HGB Concentration 31.7 g/dL (32.0-36.0); Mean Corpuscular Hemoglobin 31.1 pg (27.0-33.0); Mean Platelet Volume 9.2 fL (8.0-11.0); Monocytes % 7.2; Neutrophils % 69.5; Platelet Count 103 x1000/uL (130-400); RBC 2.99 m/cumm (4.50-6.00); RBC Distribution Width 16.4 % (11.8-14.1); White Blood Cell Count 2.76 k/cumm (4.4-10.8)
[2019-04-16 07:53] LABS: ALT 21 U/L (12-78); AST 16 U/L (15-37); Alkaline Phosphatase 128 U/L (46-116); Anion Gap 11.3 mmol/L (3-11); BUN 18 mg/dL (7-18); Bilirubin, Total 0.3 mg/dL (0.2-1.0); CO2 24.7 mmol/L (21.0-32.0); CREATININE 0.82 mg/dL (0.70-1.30); Calcium 8.2 mg/dL (8.5-10.1); Chloride 102 mmol/L (98-107); Glucose 148 mg/dL (70-100); Potassium 3.8 mmol/L (3.5-5.1); Sodium 138 mmol/L (136-145); TSH 4.04 uIU/mL (0.358-3.74); Total Protein 6.6 g/dL (6.4-8.2)
== END 2019-04-17 23:59 | disposition home or self-care (01) ==
LOC: INF 01:56
PROVIDERS: PCP Family Medicine; Visit Provider Internal Medicine Hematology & Oncology
DX: C34.90 Malignant neoplasm of unspecified part of unspecified bronchus or lung (principal); E03.2 Hypothyroidism due to medicaments and other exogenous substances; Z45.2 Encounter for adjustment and management of vascular access device
CPT/HCPCS: 36591; 80053; 71260; 84436; 84443; 85025; J3490

== ENCOUNTER 2019-04-30 01:58 | Outpatient (RCR) | payer MEDICAID, SELFPAY ==
[2019-04-30] MEDS: Normal Saline Flush 10 ML SYR IVP (07:59)
[2019-04-30 08:16] LABS: Abs Immature Grans 0.03 k/cumm (0.0-0.09); Absolute Basophil Count 0.02 k/cumm (0.0-0.2); Absolute Eosinophil Count 0.06 k/cumm (0.0-0.7); Absolute Lymphocyte Count 0.53 k/cumm (1.2-3.4); Absolute Monocyte Count 1.01 k/cumm (0.11-0.7); Absolute Neutrophil Count 6.97 k/cumm (1.2-6.7); Basophils % 0.2; Eosinophils % 0.7; HCT 29.1 % (40.0-50.0); HGB 9.1 g/dL (13.5-17.5); Immature Grans % 0.3; Lymphocytes % 6.1; Mean Corp. HGB Concentration 31.3 g/dL (32.0-36.0); Mean Corpuscular Hemoglobin 30.8 pg (27.0-33.0); Mean Corpuscular Volume 98.6 fL (80-95); Mean Platelet Volume 10.2 fL (8.0-11.0); Monocytes % 11.7; Platelet Count 108 x1000/uL (130-400); RBC 2.95 m/cumm (4.50-6.00); RBC Distribution Width 17.7 % (11.8-14.1); White Blood Cell Count 8.62 k/cumm (4.4-10.8)
[2019-04-30 08:36] LABS: Anisocytosis 2+; Diff Comment RBC Morph Reviewed; Hypochromasia 2+; Poikilocytes 1+
[2019-04-30 08:40] LABS: ALT 22 U/L (12-78); AST 13 U/L (15-37); Albumin 2.7 g/dL (3.4-5.0); Alkaline Phosphatase 141 U/L (46-116); Anion Gap 7.6 mmol/L (3-11); BUN 14 mg/dL (7-18); Bilirubin, Total 0.4 mg/dL (0.2-1.0); CO2 27.4 mmol/L (21.0-32.0); CREATININE 0.62 mg/dL (0.70-1.30); Calcium 8.7 mg/dL (8.5-10.1); Chloride 100 mmol/L (98-107); Glucose 106 mg/dL (70-100); Potassium 3.9 mmol/L (3.5-5.1); Sodium 135 mmol/L (136-145); T4 8.9 ug/dL (4.5-12.5); Total Protein 6.7 g/dL (6.4-8.2)
== END 2019-05-17 23:59 | disposition home or self-care (01) ==
LOC: INF 01:58
PROVIDERS: PCP Family Medicine; Visit Provider Internal Medicine Hematology & Oncology
DX: C34.90 Malignant neoplasm of unspecified part of unspecified bronchus or lung (principal); E03.2 Hypothyroidism due to medicaments and other exogenous substances; Z45.2 Encounter for adjustment and management of vascular access device
CPT/HCPCS: 36591; 80053; 84436; 84443; 85025

== ENCOUNTER 2019-06-11 01:39 | Outpatient (RCR) | payer MEDICAID, SELFPAY ==
[2019-05-20] MEDS: Normal Saline Flush 10 ML SYR IVP (07:46)
[2019-05-20 08:04] LABS: Absolute Basophil Count 0.04 k/cumm (0.0-0.2); Absolute Eosinophil Count 0.06 k/cumm (0.0-0.7); Absolute Monocyte Count 0.59 k/cumm (0.11-0.7); Absolute Neutrophil Count 3.96 k/cumm (1.2-6.7); Basophils % 0.8; Eosinophils % 1.1; HCT 32.3 % (40.0-50.0); HGB 9.9 g/dL (13.5-17.5); Lymphocytes % 11.4; Mean Corp. HGB Concentration 30.7 g/dL (32.0-36.0); Mean Corpuscular Hemoglobin 29.5 pg (27.0-33.0); Mean Corpuscular Volume 96.1 fL (80-95); Mean Platelet Volume 9.5 fL (8.0-11.0); Monocytes % 11.2; Neutrophils % 75.5; Platelet Count 311 x1000/uL (130-400); RBC 3.36 m/cumm (4.50-6.00); RBC Distribution Width 17.2 % (11.8-14.1); White Blood Cell Count 5.25 k/cumm (4.4-10.8)
[2019-05-20 08:21] LABS: ALT 11 U/L (12-78); AST 9 U/L (15-37); Albumin 3.1 g/dL (3.4-5.0); Alkaline Phosphatase 106 U/L (46-116); Anion Gap 7.8 mmol/L (3-11); BUN 20 mg/dL (7-18); Bilirubin, Total 0.3 mg/dL (0.2-1.0); CO2 27.2 mmol/L (21.0-32.0); CREATININE 0.66 mg/dL (0.70-1.30); Chloride 105 mmol/L (98-107); Glucose 89 mg/dL (70-100); Potassium 4.1 mmol/L (3.5-5.1); Sodium 140 mmol/L (136-145)
[2019-05-20 08:31] LABS: T4 7.3 ug/dL (4.5-12.5)
[2019-06-11] MEDS: Normal Saline Flush 10 ML SYR IVP (07:42)
[2019-06-11 07:44] LABS: Abs Immature Grans 0.01 k/cumm (0.0-0.09); Absolute Basophil Count 0.02 k/cumm (0.0-0.2); Absolute Eosinophil Count 0.11 k/cumm (0.0-0.7); Absolute Monocyte Count 0.44 k/cumm (0.11-0.7); Absolute Neutrophil Count 3.89 k/cumm (1.2-6.7); Basophils % 0.4; Eosinophils % 2.2; HCT 33.6 % (40.0-50.0); HGB 10.3 g/dL (13.5-17.5); Immature Grans % 0.2; Lymphocytes % 10.1; Mean Corp. HGB Concentration 30.7 g/dL (32.0-36.0); Mean Corpuscular Hemoglobin 28.7 pg (27.0-33.0); Mean Corpuscular Volume 93.6 fL (80-95); Mean Platelet Volume 9.2 fL (8.0-11.0); Monocytes % 8.9; Neutrophils % 78.2; Platelet Count 133 x1000/uL (130-400); RBC 3.59 m/cumm (4.50-6.00); RBC Distribution Width 15.9 % (11.8-14.1); White Blood Cell Count 4.97 k/cumm (4.4-10.8)
[2019-06-11 08:09] LABS: ALT 16 U/L (12-78); AST 14 U/L (15-37); Albumin 2.9 g/dL (3.4-5.0); Alkaline Phosphatase 97 U/L (46-116); Anion Gap 12.3 mmol/L (3-11); BUN 15 mg/dL (7-18); Bilirubin, Total 0.4 mg/dL (0.2-1.0); CO2 25.7 mmol/L (21.0-32.0); CREATININE 0.82 mg/dL (0.70-1.30); Calcium 8.8 mg/dL (8.5-10.1); Chloride 101 mmol/L (98-107); Glucose 144 mg/dL (70-100); Potassium 3.6 mmol/L (3.5-5.1); Sodium 139 mmol/L (136-145); T4 7.1 ug/dL (4.5-12.5); TSH 2.63 uIU/mL (0.36-3.74); Total Protein 6.7 g/dL (6.4-8.2)
== END 2019-06-17 23:59 | disposition home or self-care (01) ==
LOC: INF 01:39
PROVIDERS: PCP Family Medicine; Visit Provider Internal Medicine Hematology & Oncology
DX: C34.90 Malignant neoplasm of unspecified part of unspecified bronchus or lung (principal); E03.2 Hypothyroidism due to medicaments and other exogenous substances; Z45.2 Encounter for adjustment and management of vascular access device
CPT/HCPCS: 36591; 80053; 84436; 84443; 85025

== ENCOUNTER 2019-07-17 00:24 | Outpatient (CLI) | payer MEDICAID, SELFPAY ==
--- NOTE | 2019-07-17 10:35 | DI.CT_ITS ---
SYMPTOM/DIAGNOSIS: MALIGNANT NEOPLASM LT MAIN BRONCHUS C34.02 CT CHEST, ABDOMEN:: Comparison is made with chest CT 03 Apr 2019 and abdomen and pelvic CT of [address]: There has been continued interval increase in the left superior mediastinal mass. It continues to have a necrotic center. It measures 5.5 AP x 4.3 cm transverse x 7.3 mm cephalocaudad. The vessels again cross through the mass without obstruction. There has been interval increase in subcarinal lymph node measuring 1.7 cm A right hilar lymph node is seen measuring 11 mm. No pulmonary emboli or aortic dissection is seen. There has been interval increase in size of the nodule in the left upper lobe now measuring 10 x 9 mm. An additional left upper lobe spiculated nodule is seen somewhat more inferiorly measuring 6 x 9 mm. There are a few tiny additional nodules adjacent to the superior mediastinal mass. A mass in the medial aspect of the inferior right upper lobe, adjacent to the heart measures 1.4 cm. A right lower lobe mass measures 1.7 cm. No pleural or pericardial effusions are seen. There has been no change in the T4 and T10 mild compression fractures. IMPRESSION: Interval increase in size of left sided superior mediastinal mass as well as mediastinal and right hilar adenopathy and bilateral pulmonary nodules. ABDOMEN CT: There has been no change in numerous hepatic cysts. The spleen, pancreas, kidneys, adrenals and gallbladder are unremarkable. A large diverticulum of the duodenum is again noted. No adenopathy is seen. There is no abnormal bowel dilatation. There is no ascites. The aorta is normal in diameter. IMPRESSION: No evidence of metastatic disease in the abdomen. Stable hepatic cysts.
[2019-07-17] MEDS: Omnipaque 350 MG/ML 100 ML BTL IJ (10:52)
[2019-07-17] MEDS: Breeza Beverage 473 ML BTL PO (10:53)
[2019-07-17] MEDS: Omnipaque 350 MG/ML 50 ML BTL PO (10:54)
== END 2019-07-17 00:44 ==
PROVIDERS: PCP Family Medicine; Visit Provider Registered Nurse Oncology
DX: C34.02 Malignant neoplasm of left main bronchus (principal); K57.30 Diverticulosis of large intestine without perforation or abscess without bleeding; K76.89 Other specified diseases of liver
CPT/HCPCS: 71260; 74160; J3490; Q9967

== ENCOUNTER 2019-07-17 01:05 | Outpatient (RCR) | payer MEDICAID, SELFPAY ==
[2019-07-02 08:24] LABS: Abs Immature Grans 0.01 k/cumm (0.0-0.09); Absolute Basophil Count 0.02 k/cumm (0.0-0.2); Absolute Eosinophil Count 0.06 k/cumm (0.0-0.7); Absolute Lymphocyte Count 0.79 k/cumm (1.2-3.4); Absolute Monocyte Count 0.49 k/cumm (0.11-0.7); Absolute Neutrophil Count 2.46 k/cumm (1.2-6.7); Basophils % 0.5; Eosinophils % 1.6; HCT 32.4 % (40.0-50.0); HGB 9.9 g/dL (13.5-17.5); Immature Grans % 0.3; Lymphocytes % 20.6; Mean Corp. HGB Concentration 30.6 g/dL (32.0-36.0); Mean Corpuscular Hemoglobin 27.6 pg (27.0-33.0); Mean Corpuscular Volume 90.3 fL (80-95); Mean Platelet Volume 9.3 fL (8.0-11.0); Monocytes % 12.8; Neutrophils % 64.2; Platelet Count 176 x1000/uL (130-400); RBC 3.59 m/cumm (4.50-6.00); RBC Distribution Width 15.5 % (11.8-14.1); White Blood Cell Count 3.83 k/cumm (4.4-10.8)
[2019-07-02] MEDS: Normal Saline Flush 10 ML SYR IVP (08:29)
[2019-07-02 08:42] LABS: ALT 18 U/L (12-78); AST 14 U/L (15-37); Albumin 2.7 g/dL (3.4-5.0); Alkaline Phosphatase 93 U/L (46-116); Anion Gap 9.6 mmol/L (3-11); BUN 15 mg/dL (7-18); Bilirubin, Total 0.3 mg/dL (0.2-1.0); CO2 26.4 mmol/L (21.0-32.0); CREATININE 0.69 mg/dL (0.70-1.30); Calcium 8.7 mg/dL (8.5-10.1); Chloride 102 mmol/L (98-107); Glucose 120 mg/dL (70-100); Potassium 3.7 mmol/L (3.5-5.1); Sodium 138 mmol/L (136-145); Total Protein 6.9 g/dL (6.4-8.2)
[2019-07-17 09:26] LABS: Abs Immature Grans 0.01 k/cumm (0.0-0.09); Absolute Basophil Count 0.01 k/cumm (0.0-0.2); Absolute Eosinophil Count 0.03 k/cumm (0.0-0.7); Absolute Lymphocyte Count 0.66 k/cumm (1.2-3.4); Absolute Monocyte Count 0.38 k/cumm (0.11-0.7); Absolute Neutrophil Count 3.61 k/cumm (1.2-6.7); Basophils % 0.2; Eosinophils % 0.6; HCT 33.1 % (40.0-50.0); HGB 9.9 g/dL (13.5-17.5); Immature Grans % 0.2; Mean Corp. HGB Concentration 29.9 g/dL (32.0-36.0); Mean Corpuscular Hemoglobin 26.8 pg (27.0-33.0); Mean Corpuscular Volume 89.7 fL (80-95); Mean Platelet Volume 9.5 fL (8.0-11.0); Monocytes % 8.1; Neutrophils % 76.9; Platelet Count 163 x1000/uL (130-400); RBC 3.69 m/cumm (4.50-6.00); RBC Distribution Width 16.2 % (11.8-14.1)
[2019-07-17 09:46] LABS: ALT 19 U/L (16-63); AST 15 U/L (15-37); Albumin 2.9 g/dL (3.4-5.0); Alkaline Phosphatase 89 U/L (46-116); Anion Gap 8.7 mmol/L (3-11); BUN 11 mg/dL (7-18); Bilirubin, Total 0.4 mg/dL (0.2-1.0); CO2 27.3 mmol/L (21.0-32.0); CREATININE 0.67 mg/dL (0.70-1.30); Calcium 8.8 mg/dL (8.5-10.1); Chloride 103 mmol/L (98-107); Glucose 88 mg/dL (70-100); Potassium 3.8 mmol/L (3.5-5.1); Sodium 139 mmol/L (136-145); Total Protein 7.1 g/dL (6.4-8.2)
[2019-07-17] MEDS: Heparin 500 UNITS/5 ML SYRINGE IV (14:27)
[2019-07-17] MEDS: Normal Saline Flush 10 ML SYR IVP (14:27)
== END 2019-07-18 23:59 | disposition home or self-care (01) ==
LOC: INF 01:05
PROVIDERS: Internal Medicine Hematology & Oncology; PCP Family Medicine; Visit Provider Nurse Practitioner Adult Health
DX: C34.90 Malignant neoplasm of unspecified part of unspecified bronchus or lung (principal); Z45.2 Encounter for adjustment and management of vascular access device; E03.2 Hypothyroidism due to medicaments and other exogenous substances
CPT/HCPCS: 36591; 80053; 85025

== ENCOUNTER 2019-07-23 04:22 | Outpatient (RCR) | payer MEDICAID, SELFPAY ==
[2019-07-23] MEDS: Normal Saline Flush 10 ML SYR IVP (09:19)
[2019-07-23 09:27] LABS: Absolute Basophil Count 0.03 k/cumm (0.0-0.2); Absolute Eosinophil Count 0.04 k/cumm (0.0-0.7); Absolute Lymphocyte Count 0.72 k/cumm (1.2-3.4); Absolute Monocyte Count 0.36 k/cumm (0.11-0.7); Absolute Neutrophil Count 3.42 k/cumm (1.2-6.7); Basophils % 0.7; Eosinophils % 0.9; HCT 33.7 % (40.0-50.0); HGB 10.4 g/dL (13.5-17.5); Lymphocytes % 15.8; Mean Corp. HGB Concentration 30.9 g/dL (32.0-36.0); Mean Corpuscular Hemoglobin 27.5 pg (27.0-33.0); Mean Corpuscular Volume 89.2 fL (80-95); Mean Platelet Volume 9.4 fL (8.0-11.0); Monocytes % 7.9; Neutrophils % 74.7; Platelet Count 228 x1000/uL (130-400); RBC 3.78 m/cumm (4.50-6.00); White Blood Cell Count 4.57 k/cumm (4.4-10.8)
[2019-07-23 09:48] LABS: ALT 20 U/L (16-63); AST 15 U/L (15-37); Albumin 2.8 g/dL (3.4-5.0); Alkaline Phosphatase 87 U/L (46-116); Anion Gap 9.5 mmol/L (3-11); BUN 12 mg/dL (7-18); Bilirubin, Total 0.3 mg/dL (0.2-1.0); CO2 27.5 mmol/L (21.0-32.0); CREATININE 0.79 mg/dL (0.70-1.30); Chloride 102 mmol/L (98-107); Glucose 170 mg/dL (70-100); Potassium 3.7 mmol/L (3.5-5.1); Sodium 139 mmol/L (136-145); Total Protein 7.1 g/dL (6.4-8.2)
== END 2019-08-17 23:59 | disposition home or self-care (01) ==
LOC: INF 04:22
PROVIDERS: PCP Family Medicine; Visit Provider Internal Medicine Hematology & Oncology
DX: C34.02 Malignant neoplasm of left main bronchus (principal); Z45.2 Encounter for adjustment and management of vascular access device
CPT/HCPCS: 36591; 80053; 85025

== ENCOUNTER 2019-11-04 15:17 | Inpatient (IN) | payer OTHER, SELFPAY ==
[2019-11-04] MEDS: MORPHine 2 MG/ML SYR (15:44)
[2019-11-04] MEDS: Albuterol 2.5 MG/3 ML INH SOLN VIAL (15:45)
[2019-11-04] MEDS: Normal Saline Flush 10 ML SYR (15:46)
[2019-11-04] MEDS: MORPHine 2 MG/ML SYR 4 MG IVP (15:49)
[2019-11-04] MEDS: Glycopyrrolate 0.2 MG/1 ML VIAL IVP ×4 (15:51→21:40)
[2019-11-04] MEDS: LORazepam 2 MG/ML VIAL (16:07)
[2019-11-04] MEDS: Normal Saline Flush 10 ML SYR IVP ×4 (16:09→21:40)
--- NOTE | 2019-11-04 16:49 | W.PM.HP.N ---
Date of service: 11/04/19 Assessment and Plan Assessment and plan (1) Admission for hospice care: Status: Acute Assessment and plan: Admitted for symptom management. I had seen Aditya last Saturday, 5 days prior to admission. He was declining then, but did have 4.5 good days after starting oxygen, regular morphine dosing, and quetiapine prn. Today, his breathing dramatically worsened. He could not handle his secretions. His family called the ambulance without first checking with hospice; the senior teradata developer called the hospice nurse and it was decided that they would transport Aditya for symptom management. (2) Dyspnea: Status: Acute Assessment and plan: He was acutely short of breath, in moderate to severe respiratory distress when he first arrived. He improved with glycopyrrolate for his secretions, morphine and lorazepam for his acute dypnea. He is comfortable at this time, with his imminent. I do not think he will survive the night. His family has all gathered, including his three sons. Family members are saying good-bye. (3) Dying care: Status: Acute Assessment and plan: actively dying has given last rites all comfort measure medications are in place note that at the time of my writing, I have been here for 2 hrs 20 minutes and expect I will be here another 20 minutes approximately. 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 I saw him last 5 days ago at his house; he was having more confusion and dyspnea. At that time, he reluctantly agreed to wear oxygen, as his RA oxygen saturation was only 85%. He started taking low dose morphine more regularly. He had episodes of confusion and delirium with agitation. We started quetiapine 12.5 tid prn. This helped. Today, his family called the amublance as he was very short of breath and was having audible breathing. The ambulance team arrived and turned up his oxygen. He received a dose of lorazepam but still was struggling. Family wanted him transported to the hospital for symptom management. Nurse Berta Ordonez called the hospital to ensure there was room; she then called me and I came directly from my home visit in [place]. When I arrived, he was still in respiratory distress. The nurse started an IV and he received two doses of morphine IVP. He received glycopyrralate. I asked Aditya if he wanted us to try to stabilize him and send him home of if he wanted to in the hospital. I told him that I thought he was actively dying and he said he thought he was too. He wanted to stay in the hospital. He didn't want to be a burden to his family. His family has all gathered. The coke still cleaner gave him last rites. His is imminent. I told him and his family that he has no more than hours, not days. Review of Systems Narrative: Cachectic, initially in moderate to severe respiratory distress. Currently calm. With some rhonchorous breathing, but much better now with glycopyrrolate. Was talking and interactive when he first came in. Was able to say that he knew he was dying and that he preferred to in the hospital. He did not want to return home. We did not take VS, but he heart sounded as if it were beating in the 90s and his initial RR was 32, currently 16. He is not having apnea/ He did have a brief episode of agitation when he tried to get OOB. I was able to lift him back into bed. He removed his own nasal cannula. His family supported his decision not to wear it. I ordered a CADD pump but given his rapid deterioration, we cancelled it. All 3 sons were able to make it to his bedside, as were most of his siblings and his mother. Lungs were distant, + rhonchi. 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 Sister No problems noted. Sister No problems noted. Brother No problems noted. Brother No problems noted. Brother No problems noted. Son No problems noted. Son No problems noted. Son No problems noted. Mother No problems noted. Social History (Updated 11/04/19 @ 17:20 by Geri Barrera MD) Smoking/Tobacco Use Status: Former Tobacco Use Tobacco: How many years used: 40 Second Hand Exposure: No Alcohol Intake: former Year quit: 1987 Drug use: Never Substance use type: other Details: CBD oil, for pain Adopted: No Caregiver/Support person: Yes Foster care: No Household members: family and other Details: lives with mother Housing: house Number of Children: 3 number of grandchildren: 3 Communication Needs: Corrective Lenses Education Level: high school Do you need help understanding health information?: Always current occupation: sells vegetables; done for the season Pets and animals: Yes Pets and animals: dog(s) What is your relationship status?: How often do you talk on the phone with friends or family?: three or more times per week How often do you get together with friends or relatives?: three or more times per week Panel score (0-1 are the most socially isolated patients): 1 What type of physical activity do you participate in: walking and irregular exercise Duration: < 15 minutes/day Frequency: daily Special jacquelny needs: No Seatbelt use: always Drive intox or ride w/intox minibus driver: No Water heater temp set <120 deg: Yes Working smoke detector in home: Yes Fire extinguisher in home: Yes Carbon monox detector in home: Yes Firearms in home: Yes Firearms unloaded and locked: Yes Do you feel safe at home: Yes Do you feel safe in your relationship?: Yes Additional Social history: Lives with his mother. Sister Anastacia lives across the street and is very involved. She is having hard time with Aditya's illness. Hates to leave his children behind. Nothing more important in my life than being a good dad. Has 3 bio, many of the heart. Meds Home Medications and Allergies Home Medications Medication Instructions Recorded Confirmed Type calcium carbonate 200 mg calcium 200 mg PO BID tab 12/11/18 History (500 mg) chewable tablet naproxen 500 mg tablet 500 mg PO BID 12/11/18 History prochlorperazine maleate 10 mg 10 mg PO Q6H PRN tab 12/11/18 History tablet sucralfate 100 mg/mL oral 10 ml PO QID 12/11/18 History suspension diphenhydramine HCl 25 mg tablet 25 mg PO QHS PRN 05/20/19 History Cannabidiol 1 drp PO HS 07/23/19 09/15/19 History prochlorperazine maleate 10 mg 10 mg PO Q6H PRN 07/23/19 History tablet Allergies Allergy/AdvReac Type Severity Reaction Status Date / Time Penicillins Allergy Unknown Verified 09/30/18 09:20 iodine Allergy Anaphylaxsi Verified 09/30/18 09:20 s shellfish derived Allergy Anaphylaxsi Verified 09/30/18 09:20 s venom-honey bee Allergy Anaphylaxsi Verified 09/30/18 09:20 s Exam Const General: in distress, disheveled, frail appearing and ill appearing Nutritional Appearance: cachectic Orientation: other (initially alert and oriented but after an episode of agitation became MR) [facility] Head: normocephalic and atraumatic Ears: hearing grossly normal bilaterally General nose exam: external nose normal Face and sinus: normal facial exam, face symmetric, dry mucous membranes and other (protestant wasting; extremely cachectic) Teeth and gingiva: poor dentition Eyes Conjunctivae: conjunctivae normal Sclera: sclerae normal Pupils: dilated, fixed and not reactive Neck Neck: no lymphadenopathy and no JVD Chest Breast inspection: other (chemo port still visible in right upper chest) Resp Effort & Inspection: able to speak in complete sentences (initially, but rapidly deteriorated, now agonal breathing only), abnormal respiratory pattern, labored, retractions, uses accessory muscles and other (cynotic lips) Auscultation: crackles, diminished lung sounds and rhonchi Cardio Jugular venous pressure: JVD (JVD became visible after his agitated event, not before) pulsatile Rate: tachycardic Rhythm: abnormal rhythm Heart Sounds: S1 normal and S2 normal GI Inspection: scaphoid Palpation: firm Auscultation: hypoactive bowel sounds Back/Spine/Pelvis Back: back tenderness Skin General skin exam: atrophy, dry skin, no mottling and other (moss pallor) Hair: male pattern alopecia and other (bearded) Nails: clubbing and discolored Neuro General: alert (initially, now obtunded) Cognition: normal cognition (when he first arrived; knew he was dying; said he was not afraid)
[2019-11-05] MEDS: Glycopyrrolate 0.2 MG/1 ML VIAL IVP ×4 (01:10→11:33)
[2019-11-05] MEDS: Normal Saline Flush 10 ML SYR IVP ×3 (01:10→08:28)
[2019-11-05] MEDS: LORazepam 2 MG/ML VIAL IV/SC ×2 (03:46→10:11)
--- NOTE | 2019-11-05 08:11 | PGE_ITS ---
Date of Service Date of service: 11/05/19 Time of Service: 08:11 Assessment and Plan Assessment and plan (1) Admission for hospice care: Status: Acute Assessment and plan: Expect he will before the day is out but he doesn't look remarkably different from last night. +rhonchorous breath sounds. + increased WOB. No grimace or frown. Morphine primarily for respiratory distress. (2) Dying care: Status: Acute Assessment and plan: has given last rights. Family has been in. Nurses report that have all medications they need to keep him comfortable. Expect he will not live another 24 hrs. Will see. 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 Still with rhonchorous breathing. Receiving glycopyrrolate regularly. Took his oxygen off last night. [facility] except for Jose Carlos and her daughter. They have spoken to Aditya on the phone. He is not making any urine. He is not taking anything in by mouth. He had one episode about 3 am where he once again stood. Nurses redirected him back to bed and after that started the morphine pump. He looks comfortable at the time of my visit. Youngest son Saúl and cousin Marlys were with him. Exam Const General: disheveled, frail appearing and ill appearing Nutritional Appearance: cachectic Orientation: obtunded [facility] Head: normocephalic and atraumatic General nose exam: external nose normal Face and sinus: normal facial exam, face symmetric, dry mucous membranes and other (evangelical wasting; extremely cachectic) Teeth and gingiva: poor dentition Eyes Conjunctivae: conjunctivae normal Sclera: sclerae normal Pupils: dilated, fixed and not reactive Neck Neck: no lymphadenopathy Chest Breast inspection: other (chemo port still visible in right upper chest) Resp Effort & Inspection: abnormal respiratory pattern, labored, retractions, uses accessory muscles and other (cynotic lips) Auscultation: crackles, diminished lung sounds and rhonchi Cardio Jugular venous pressure: JVD (JVD became visible after his agitated event, not before) pulsatile Rate: tachycardic Rhythm: abnormal rhythm Heart Sounds: S1 normal and S2 normal GI Inspection: scaphoid Palpation: firm Auscultation: hypoactive bowel sounds Skin General skin exam: atrophy, dry skin, no mottling and other (moss pallor) Hair: male pattern alopecia and other (bearded) Nails: clubbing and discolored Neuro Cognition: normal cognition (when he first arrived; knew he was dying; said he was not afraid) Extrem General: clubbing and muscle atrophy Psych Appearance: disheveled Speech and Movement: mute Other: actively dying no agitation has had 2 short episodes of agitation that passed on their own since his adm ission Objective Objective Clinical Data: Vital Signs Respiratory Effort Accessory Muscle Use 11/05/19 03:58 Respiratory Depth Deep 11/05/19 03:58 Respiratory Pattern Apnea 11/05/19 03:58 Intake & Output 11/04/19 11/04/19 11/05/19 11:59 23:59 11:59 Weight 104 lb 11.513 oz
[2019-11-05] MEDS: Acetaminophen 650 MG SUPP PR (08:28)
--- NOTE | 2019-11-05 11:26 | PHARADMIT ---
Admission Pharmacy Clinical Review HOSPICE, SYMPTOM MANAGEMENT PATIENT HAS TRANSITIONED TO [facility], on Morphine Infusion 5mg/hr (2.5mL/hr) started 11/05 at 0348
--- NOTE | 2019-11-05 11:39 | W.NUTCONSULT ---
Date of service: 11/05/19 Time of Service: 11:39 Nutritional Consult INTERVENTION: 64 year old male admitted to Hospice and in dying process. nutrition services not needed at this time. Time Spent in Nutritional Counseling and Treatment: 0 time spent face to face
--- NOTE | 2019-11-05 14:38 | CHAPLAIN ---
I visited with Aditya last night when he was brought in under hospice care. He was clear with Dr. Barrera that he wanted to stay here and that he realized he would not survive this admission. He took Aditya a while to get comfortable and have more relaxed breathing. Many family members arrived (about 20) to be with Aditya, including this three sons and his mom. He became less responsive by 5 p.m. Fr. Thomas was called and he offered anointing of the sick to Aditya. I left at 6 p.m. and checked back at 8 p.m. and Aditya was not responsive and several family members were still here. This morning Aditya's son Saúl was with him, other family members arrived during the morning and Aditya about 12:45 p.m. Family members continued to arrive.
== END 2019-11-05 12:22 | disposition expired | DRG 181 ==
PROVIDERS: Admitting Provider Family Medicine; PCP Family Medicine; Visit Provider Family Medicine
DX: C34.02 Malignant neoplasm of left main bronchus (principal); R64 Cachexia; Z51.5 Encounter for palliative care; R06.03 Acute respiratory distress; Z87.891 Personal history of nicotine dependence; Z68.20 Body mass index [BMI] 20.0-20.9, adult
CPT/HCPCS: 99223; 99232; J2060; J2270; J7613